=== PATIENT | male | born 1960 | race Caucasian/White ===

== ENCOUNTER 2018-04-29 09:58 | Emergency (ER) | payer OTHER ==
[2018-04-29 10:03] VITALS: TEMP 97.9
--- NOTE | 2018-04-29 10:15 | ED ---
Abdominal Pain HPI - General Chief Complaint: Abdominal Pain Stated Complaint: Constipation Time Seen by Provider: 04/29/18 10:09 Source: patient, RN notes reviewed Mode of arrival: ambulatory Limitations: no limitations - History of Present Illness Initial Comments: This is a 57-year-old male who presents to the emergency department with chief complaint of constipation. Patient states that he has not had a bowel movement for the past 5-6 days. He states that he has been passing gas. Patient states that he has tried stool softeners, suppositories and enemas. He states that last night he was able to move a small portion of his bowels but the stool was hard and he has been having difficulty getting it past the rectum. He denies any abdominal pain but does state that he feels bloated. Denies fevers or chills, chest pain or shortness of breath, nausea or vomiting. Denies any recent surgeries. - Related Data Home Medications Medication Instructions Recorded Confirmed No Known Home Medications 04/29/18 04/29/18 Allergies Allergy/AdvReac Type Severity Reaction Status Date / Time No Known Allergies Allergy Verified 04/29/18 10:32 Review of Systems ROS Statement: Those systems with pertinent positive or pertinent negative responses have been documented in the HPI. ROS Other: All systems not noted in ROS Statement are negative. Past Medical History Past Medical History: Hypertension History of Any Multi-Drug Resistant Organisms: None Reported Past Surgical History: Orthopedic Surgery Additional Past Surgical History / Comment(s): 3 knee surgerys Past Psychological History: No Psychological Hx Reported Smoking Status: Current every day smoker Past Alcohol Use History: Occasional Past Drug Use History: None Reported General Exam - General Exam Comments Initial Comments: General: Awake and alert, well-developed; in no apparent distress. HEENT: Head atraumatic, normocephalic. Pupils are equal, round and reactive to light. Extraocular movements intact. Oropharynx moist without erythema or exudate. Neck: Supple. Normal ROM. Cardiovascular: Regular rate and rhythm. No murmurs, rubs or gallops. Chest symmetrical. Respiratory: Lungs clear to auscultation bilaterally. No wheezes, rales or rhonchi. Normal respiratory effort with no use of accessory muscles. Abdomen: Soft, non-tender, distended. No rigidity, rebound or guarding. Normal bowel sounds in all 4 quadrants. Musculoskeletal: Normal ROM, no tenderness bilateral upper and lower extremities. Ambulating normally. Skin: [place], warm and dry without rashes or lesions. Neurological: Alert and oriented x3. CN II-XII grossly intact. Speech is fluent and answers are appropriate. No focal neuro deficits. Psychiatric: Normal mood and affect. No overt signs of depression or anxiety noted. Limitations: no limitations Course Vital Signs 04/29/18 10:00 Temperature 97.9 F Pulse Rate 106 H Respiratory 16 Rate Blood Pressure 147/78 O2 Sat by Pulse 94 L Oximetry Medical Decision Making - Medical Decision Making This is a 57-year-old male who presents to the emergency department with chief complaint of constipation. Patient reports not having a bowel movement for the past 5-6 days. Abdomen is soft and non-tender. Patient has no other complaints. X-ray KUB revealed no significant stool burden. Discussed options with patient including enema or magnesium citrate. Patient states that he would rather go home and drink magnesium citrate. Case discussed with attending physician, Dr. Bush. Patient's vital signs are stable and he is in no acute distress. He'll be discharged home at this time. He is in agreement and voices understanding. All questions answered. - Radiology Data Radiology results: report reviewed, image reviewed X-ray KUB impression: 1. Small air-fluid levels in the right hemicolon could represent a regional ileus or liquid stool relating to an enteritis. 2. No evidence for free air or bowel obstruction. 3. No significant stool burden. Disposition Clinical Impression: Constipation Disposition: HOME SELF-CARE Condition: Good Instructions: Magnesium Citrate (By mouth), Constipation (ED) Additional Instructions: Please follow up with primary care provider within 1-2 days. Return to emergency department if symptoms should worsen or any concerns arise. Is patient prescribed a controlled substance at d/c from ED?: No Referrals: None,Stated [Primary Care Provider] - 1-2 days Time of Disposition: 11:33
[2018-04-29] MEDS ORDERED: MAGNESIUM CITRATE 296 ML BOTTLE PO ONE (11:31)
--- NOTE | 2018-04-29 11:40 | XR ---
EXAMINATION TYPE: XR KUB DATE OF EXAM: 04/29/2018 CLINICAL DATA: 57-year-old male constipation, rule out impaction, PHH COMPARISON: None FINDINGS: Lung bases are clear. No evidence for free intraperitoneal air. No dilated small bowel or differential air-fluid levels. Scattered air is present within the colon. N o significant stool burden. Small air-fluid levels are present in the right hemicolon. Within the left side of the pelvis. IMPRESSION: 1. Small air-fluid levels in the right hemicolon could represent a regional ileus or liquid stool rel ating to an enteritis. 2. No evidence for free air or bowel obstruction. 3. No significant stool burden.
[2018-04-29 11:46] VITALS: BP 148/96; PULSE 96; RESP 18
== END 2018-04-29 11:46 | disposition home or self-care (01) ==
LOC: EC 09:58
DX: K59.00 Constipation, unspecified (principal); F17.200 Nicotine dependence, unspecified, uncomplicated; Z98.890 Other specified postprocedural states
CPT/HCPCS: 74018; 99284

== ENCOUNTER 2019-07-05 15:40 | Inpatient (IN) | payer OTHER ==
[2019-07-05 16:16] LABS: Basophils # (A) 0.1 k/uL (0-0.2); Basophils % (A) 1 %; Eosinophils # (A) 0.1 k/uL (0-0.7); Eosinophils % (A) 1 %; HCT 46.7 % (39.0-53.0); HGB 15.5 gm/dL (13.0-17.5); Lymphocytes # (A) 1.7 k/uL (1.0-4.8); Lymphocytes % (A) 18 %; MCH 34.4 pg (25.0-35.0); MCHC 33.2 g/dL (31.0-37.0); MCV 103.8 fL (80.0-100.0); Macrocytosis Slight; Mean Platelet Volume 7.1; Monocytes # (A) 0.5 k/uL (0-1.0); Monocytes % (A) 5 %; Neutrophils # (A) 7.1 k/uL (1.3-7.7); Neutrophils % (A) 74 %; Platelet Count 149 k/uL (150-450); RDW 13.4 % (11.5-15.5); WBC 9.6 k/uL (3.8-10.6)
--- NOTE | 2019-07-05 16:25 | XR ---
EXAMINATION TYPE: XR chest 2V DATE OF EXAM: 07/05/2019 COMPARISON: EXAMINATION TYPE: XR chest 2V DATE OF EXAM: 07/05/2019 COMPARISON: NONE HISTORY: Short of breath TECHNIQUE: 2 views FINDINGS: Heart is enlarged. There is blunting right costophrenic angle. There is some pulmonary vasc ular congestion. There are chest leads. There is spurring in the thoracic spine. IMPRESSION: Mild congestive heart failure. Right pleural effusion. HISTORY: TECHNIQUE: Frontal and lateral views of the chest are obtained. FINDINGS: There is no focal air space opacity, pleural effusion, or pneumothorax seen. The cardiac silhouette size is within normal limits. The osseous structures are intact. IMPRESSION: No acute cardiopulmonary process.
[2019-07-05 16:27] LABS: ALT 39 U/L (21-72); AST 58 U/L (17-59); African American GFR (CKD) >90 (>60 ml/min/1.73 sqM); Albumin 4.1 g/dL (3.5-5.0); Alkaline Phosphatase 259 U/L (38-126); Anion Gap 10 mmol/L; Blood Urea Nitrogen 14 mg/dL (9-20); Calcium 8.9 mg/dL (8.4-10.2); Carbon Dioxide 26 mmol/L (22-30); Chloride 104 mmol/L (98-107); Glucose 132 mg/dL (74-99); Sodium 140 mmol/L (137-145); Total Bilirubin 3.3 mg/dL (0.2-1.3)
[2019-07-05 16:33] LABS: Partial Thromboplastin Time 26.9 sec (22.0-30.0)
--- NOTE | 2019-07-05 16:33 | ED ---
General Adult HPI - General Chief complaint: Shortness of Breath Stated complaint: DAVID Time Seen by Provider: 07/05/19 15:56 Source: patient Mode of arrival: ambulatory Limitations: no limitations - History of Present Illness Initial comments: Patient presents the ED complaining of having shallow respirations, dyspnea, and bilateral lower extremity edema for the past 2 days. Patient states that his dyspnea is worse when standing and with exertion. Patient denies having any pain, fever or chills, headache, focal neuro deficit, chest pain, neck/arm/jaw pain, cough or cold symptoms, palpitations, dizziness, nausea/vomiting/diaphoresis, abdominal pain, decreased urine output or urinary symptoms, leg or calf pain, or any other symptoms or complaints. Patient states that he quit smoking about 3 months ago. - Related Data Home Medications Medication Instructions Recorded Confirmed Aspirin EC [Ecotrin Low Dose] 81 mg PO DAILY 07/05/19 07/05/19 Ibuprofen [Motrin Ib] 400 mg PO Q6H PRN 07/05/19 07/05/19 Allergies Allergy/AdvReac Type Severity Reaction Status Date / Time No Known Allergies Allergy Verified 07/05/19 16:51 Review of Systems ROS Statement: Those systems with pertinent positive or pertinent negative responses have been documented in the HPI. ROS Other: All systems not noted in ROS Statement are negative. Past Medical History Past Medical History: Hypertension History of Any Multi-Drug Resistant Organisms: None Reported Past Surgical History: Orthopedic Surgery Additional Past Surgical History / Comment(s): 3 knee surgerys Past Psychological History: No Psychological Hx Reported Smoking Status: Current every day smoker Past Alcohol Use History: Occasional Past Drug Use History: None Reported General Exam Limitations: no limitations General appearance: alert, in no apparent distress Head exam: Present: atraumatic, normocephalic Eye exam: Present: normal appearance, EOMI ENT exam: Present: mucous membranes moist Neck exam: Present: other (Trachea is in midline) Respiratory exam: Present: normal lung sounds bilaterally. Absent: respiratory distress, wheezes, rales, rhonchi Cardiovascular Exam: Present: normal rhythm, tachycardia, normal heart sounds, other (Normal radial pulses bilaterally) GI/Abdominal exam: Present: soft. Absent: distended, tenderness Extremities exam: Present: pedal edema. Absent: tenderness, calf tenderness Neurological exam: Present: alert, oriented X3. Absent: motor sensory deficit Psychiatric exam: Present: normal affect, normal mood Skin exam: Present: warm, dry Course Vital Signs 07/05/19 07/05/19 07/05/19 15:46 16:00 16:30 Temperature 98.0 F Pulse Rate 138 H 131 H 130 H Respiratory 18 25 H 10 L Rate Blood Pressure 160/112 147/116 152/113 O2 Sat by Pulse 97 100 99 Oximetry 07/05/19 07/05/19 07/05/19 17:00 17:30 17:51 Temperature Pulse Rate 131 H 128 H 133 H Respiratory 19 22 20 Rate Blood Pressure 142/104 138/90 146/122 O2 Sat by Pulse 98 98 96 Oximetry 07/05/19 07/05/19 07/05/19 17:55 18:00 18:29 Temperature Pulse Rate 129 H 129 H 130 H Respiratory 20 22 18 Rate Blood Pressure 139/109 139/109 139/106 O2 Sat by Pulse 96 94 L 95 Oximetry 07/05/19 18:37 Temperature Pulse Rate 129 H Respiratory 18 Rate Blood Pressure 123/100 O2 Sat by Pulse 94 L Oximetry - Reevaluation(s) Reevaluation #1: 07/05/19 18:42 Case, H&P, test results and ED management were discussed with Dr. Santos. He accepts hospital floor admission. He has no further recommendations at this time. 07/05/19 19:04 Patient remains alert and breathing comfortably with a normal room air oxygen saturation, and he denies development of any new symptoms while in the ED. Patient's heart rate remains in the 130s on the cable coverer. I suspect that the patient's rhythm is likely sinus versus atrial tachycardia. Patient is aware of his test results, and he agrees with hospital admission at this time. EKG Findings - EKG Comments: EKG Findings:: EKG is limited secondary to motion; suspected rhythm is sinus vs. atrial tachycardia, ventricular rate of 133 bpm, normal [place] and QRS intervals, normal QT interval, no definite ST or T-wave abnormality Medical Decision Making - Medical Decision Making I suspect that the patient's symptoms are likely secondary to CHF given his elevated BNP and lower extremity edema. Patient's CTA chest w/ IV contrast shows a right pleural effusion and mild right basilar infiltrate. I do not suspect pneumonia, as the patient is afebrile, without leukocytosis and denies having a cough. Patient was given IV metoprolol and IV diltiazem in the ED in attempt to slow his heart rate out of concern for the possibility that it may be secondary to atrial tachycardia. Patient was also given a dose of IV Lasix in the ED. Patient's CTA chest with IV contrast is negative for PE. Patient's troponin is negative. Will admit the patient to the hospital for further evaluation and management under care of Dr. Santos. - Lab Data Result diagrams: 07/05/19 16:00 07/05/19 16:00 Lab Results 07/05/19 07/05/19 07/05/19 Range/Units 16:00 16:00 16:00 WBC 9.6 (3.8-10.6) k/uL RBC 4.50 (4.30-5.90) m/uL Hgb 15.5 (13.0-17.5) gm/dL Hct 46.7 (39.0-53.0) % MCV 103.8 H (80.0-100.0) fL MCH 34.4 (25.0-35.0) pg MCHC 33.2 (31.0-37.0) g/dL RDW 13.4 (11.5-15.5) % Plt Count 149 L (150-450) k/uL Neutrophils % 74 % Lymphocytes % 18 % Monocytes % 5 % Eosinophils % 1 % Basophils % 1 % Neutrophils # 7.1 (1.3-7.7) k/uL Lymphocytes # 1.7 (1.0-4.8) k/uL Monocytes # 0.5 (0-1.0) k/uL Eosinophils # 0.1 (0-0.7) k/uL Basophils # 0.1 (0-0.2) k/uL Macrocytosis Slight PT 11.0 (9.0-12.0) sec INR 1.0 (<1.2) APTT 26.9 (22.0-30.0) sec D-Dimer 2.17 H (<0.60) mg/L FEU Sodium 140 (137-145) mmol/L Potassium 4.0 (3.5-5.1) mmol/L Chloride 104 (98-107) mmol/L Carbon Dioxide 26 (22-30) mmol/L Anion Gap 10 mmol/L BUN 14 (9-20) mg/dL Creatinine 0.93 (0.66-1.25) mg/dL Est GFR (CKD-EPI)AfAm >90 (>60 ml/min/1.73 sqM) Est GFR (CKD-EPI)NonAf >90 (>60 ml/min/1.73 sqM) Glucose 132 H (74-99) mg/dL Calcium 8.9 (8.4-10.2) mg/dL Total Bilirubin 3.3 H (0.2-1.3) mg/dL AST 58 (17-59) U/L ALT 39 (21-72) U/L Alkaline Phosphatase 259 H (38-126) U/L Troponin I (0.000-0.034) ng/mL NT-Pro-B Natriuret Pep pg/mL Total Protein 8.0 (6.3-8.2) g/dL Albumin 4.1 (3.5-5.0) g/dL 07/05/19 07/05/19 Range/Units 16:00 16:00 WBC (3.8-10.6) k/uL RBC (4.30-5.90) m/uL Hgb (13.0-17.5) gm/dL Hct (39.0-53.0) % MCV (80.0-100.0) fL MCH (25.0-35.0) pg MCHC (31.0-37.0) g/dL RDW (11.5-15.5) % Plt Count (150-450) k/uL Neutrophils % % Lymphocytes % % Monocytes % % Eosinophils % % Basophils % % Neutrophils # (1.3-7.7) k/uL Lymphocytes # (1.0-4.8) k/uL Monocytes # (0-1.0) k/uL Eosinophils # (0-0.7) k/uL Basophils # (0-0.2) k/uL Macrocytosis PT (9.0-12.0) sec INR (<1.2) APTT (22.0-30.0) sec D-Dimer (<0.60) mg/L FEU Sodium (137-145) mmol/L Potassium (3.5-5.1) mmol/L Chloride (98-107) mmol/L Carbon Dioxide (22-30) mmol/L Anion Gap mmol/L BUN (9-20) mg/dL Creatinine (0.66-1.25) mg/dL Est GFR (CKD-EPI)AfAm (>60 ml/min/1.73 sqM) Est GFR (CKD-EPI)NonAf (>60 ml/min/1.73 sqM) Glucose (74-99) mg/dL Calcium (8.4-10.2) mg/dL Total Bilirubin (0.2-1.3) mg/dL AST (17-59) U/L ALT (21-72) U/L Alkaline Phosphatase (38-126) U/L Troponin I <0.012 (0.000-0.034) ng/mL NT-Pro-B Natriuret Pep 3550 pg/mL Total Protein (6.3-8.2) g/dL Albumin (3.5-5.0) g/dL - Radiology Data Radiology results: report reviewed (CT angiogram chest with IV contrast is negative for PE, but does show a right pleural effusion and mild right basilar infiltrate and atelectasis), image reviewed (Patient's chest x-ray is negative) Disposition Clinical Impression: Dyspnea, Congestive heart failure, Tachycardia Disposition: ADMITTED IP TO THIS [facility] Condition: Stable Is patient prescribed a controlled substance at d/c from ED?: No Time of Disposition: 18:42 Decision Date: 07/05/19 Decision Time: 17:42
[2019-07-05 16:43] LABS: D-Dimer 2.17 mg/L FEU (<0.60)
--- NOTE | 2019-07-05 17:34 | CT ---
EXAMINATION TYPE: CT chest angio for PE DATE OF EXAM: 07/05/2019 COMPARISON: None HISTORY: Dyspnea, Elevated d-dimer CT DLP: 722.9 mGycm Automated exposure control for dose reduction was used. CONTRAST: CT Chest for pulmonary embolism performed with with IV Contrast, patient injected with 100 mL of Isov ue 370. There are 3-D post processed images. FINDINGS: There is small right pleural effusion. There is moderate abdominal ascites fluid. Heart is enlarged. There is no pericardial effusion. There is some infiltrate and atelectasis right lower lobe. I see no pulmonary mass. There are no hilar masses. There is no mediastinal adenopathy. There are no hilar masses. Thoracic aorta shows no aneurysm or di ssection. There is normal contrast opacification of the pulmonary arteries. I see no filling defect. There is some degenerative spurring in the thoracic spine. There is a large hypertrophic anterior ost eophyte in the mid thoracic spine. IMPRESSION: No evidence of pulmonary embolism. Right pleural effusion and right basilar mild pulmonary infiltrate and atelectasis. Abdominal ascites.
[2019-07-05] MEDS ORDERED: METOPROLOL TARTRATE 5 MG/5 ML VIAL IVP STA (17:39)
[2019-07-05] MEDS ORDERED: FUROSEMIDE 10 MG/ML 4 ML VIAL IV STA (17:41)
[2019-07-05] MEDS ORDERED: DILTIAZEM 5 MG/ML 5 ML VIAL IVP STA ×2 (18:31→20:28)
[2019-07-05] MEDS ORDERED: ENOXAPARIN 100 MG/ML SYRINGE SQ STA (20:29)
[2019-07-05] MEDS ORDERED: DILTIAZEM 125 MG in SODIUM CHLORIDE 0.9% 100 ML IV SCH ×4 (20:30)
[2019-07-05] MEDS: SODIUM CHLORIDE 0.9% 1,000 ML IV SCH (22:00)
[2019-07-05] MEDS ORDERED: DEXTROSE 5% IN WATER 100 ML with AMIODARONE 150 MG IV ONE (23:00)
[2019-07-05] MEDS ORDERED: AMIODARONE 360 MG in DEXTROSE 5% IN WATER 200 ML IV ONE ×2 (23:00)
[2019-07-06] MEDS ORDERED: AMIODARONE 300 MG in DEXTROSE 5% IN WATER 250 ML IV SCH ×2 (05:00)
[2019-07-06 05:10] LABS: Basophils # (A) 0.1 k/uL (0-0.2); Basophils % (A) 1 %; Eosinophils % (A) 1 %; HCT 42.5 % (39.0-53.0); HGB 13.7 gm/dL (13.0-17.5); Lymphocytes # (A) 1.5 k/uL (1.0-4.8); Lymphocytes % (A) 20 %; MCH 33.9 pg (25.0-35.0); MCHC 32.2 g/dL (31.0-37.0); MCV 105.2 fL (80.0-100.0); Macrocytosis Moderate; Mean Platelet Volume 7.2; Monocytes # (A) 0.4 k/uL (0-1.0); Monocytes % (A) 6 %; Neutrophils # (A) 5.4 k/uL (1.3-7.7); Neutrophils % (A) 72 %; Platelet Count 120 k/uL (150-450); RBC 4.04 m/uL (4.30-5.90); RDW 13.6 % (11.5-15.5); WBC 7.6 k/uL (3.8-10.6)
[2019-07-06] MEDS ORDERED: DILTIAZEM 5 MG/ML 5 ML VIAL IVP STA (05:11)
[2019-07-06] MEDS: DILTIAZEM 125 MG in SODIUM CHLORIDE 0.9% 100 ML IV SCH ×2 (05:28→18:01)
[2019-07-06 05:42] LABS: ALT 36 U/L (21-72); AST 46 U/L (17-59); African American GFR (CKD) >90 (>60 ml/min/1.73 sqM); Albumin 3.6 g/dL (3.5-5.0); Alkaline Phosphatase 215 U/L (38-126); Anion Gap 7 mmol/L; Blood Urea Nitrogen 14 mg/dL (9-20); Calcium 8.8 mg/dL (8.4-10.2); Carbon Dioxide 32 mmol/L (22-30); Chloride 100 mmol/L (98-107); Glucose 108 mg/dL (74-99); Potassium 3.7 mmol/L (3.5-5.1); Sodium 139 mmol/L (137-145); Total Bilirubin 3.5 mg/dL (0.2-1.3); Total Protein 6.8 g/dL (6.3-8.2)
[2019-07-06] MEDS: METOPROLOL SUCCINATE (ER) 50 MG TAB.ER.24H PO SCH (10:03)
[2019-07-06] MEDS: FUROSEMIDE 10 MG/ML 10 ML VIAL IV SCH ×2 (10:04→20:10)
--- NOTE | 2019-07-06 10:36 | XR ---
EXAMINATION TYPE: XR chest 2V DATE OF EXAM: 07/06/2019 COMPARISON: 06/04/2019 TECHNIQUE: PA and lateral views submitted. HISTORY: Shortness of breath FINDINGS: Right lower lobe consolidation and pleural effusion. Cardiomegaly and prominent interstitium. Hyperin flation suggests COPD. Hypertrophic and degenerative change of the spine. IMPRESSION: 1. Right lower lobe infiltrate and small effusion. 2. Correlate for CHF or interstitial pneumonitis.
--- NOTE | 2019-07-06 12:09 | CONS ---
CONSULTATION CHIEF COMPLAINT: Leg edema and palpitations. HISTORY OF PRESENT ILLNESS: This is a 58-year-old gentleman with history of alcohol abuse that stopped drinking roughly 6 months ago, comes into hospital complaining of sustained palpitations. He also had shortness of breath and leg edema. He did not have any chest pain. On his presentation, the BNP was elevated. Troponins were within normal limits. EKG showed atrial flutter with variable heart rate. The D-dimer was elevated at 2.17. He had a CT scan of the chest that was negative for pulmonary embolism. There were bilateral pleural effusions. At the time of my evaluation, patient still remains tachycardic. He is on intravenous Cardizem and amiodarone and had received Lovenox 1 dose. There is no prior history of coronary artery disease, congestive heart failure, cardiac arrhythmia. There is history of heavy alcohol use that he quit 6 months ago. While the liver enzymes seem okay, his total bilirubin is elevated. The patient's clinical presentation is consistent with atrial flutter and new onset congestive heart failure. It is possible that the patient has dilated cardiomyopathy related to alcoholism or tachyarrhythmia. I am going to continue the Cardizem and amiodarone. I am going to add a beta aixa. I will obtain a 2D echo and start him on Xarelto if he is covered. PAST MEDICAL HISTORY: Negative for hypertension, diabetes, dyslipidemia, coronary artery disease or congestive heart failure. MEDICATIONS: None. ALLERGIES: FAMILY HISTORY: Significant for coronary artery disease. SOCIAL HISTORY: Significant for ETOH abuse that he quit 6 months ago. Denies current smoking. REVIEW OF SYSTEMS: HEENT is unremarkable. Cardiac as described above. Respiratory as described above. GI negative. ALLERGY none. Derm: Negative. Skin negative. Musculoskeletal for arthritis. Psychosocial negative. Endocrine negative. Constitutional negative. Oncological negative. DR[employer] INSTRU[employer] negative. Rest of the system review is not relevant. EXAM: Patient is comfortable at rest. Afebrile. Heart rate is 127 beats per minute. Blood pressure is 135/93, respiratory rate is 18. There is no jugular venous distention. Carotid upstroke is normal. There is no bruit. Chest exam reveals good air entry bilaterally. Heart exam reveals first and second heart sounds, irregular rhythm and a systolic murmur at the left lower sternal border. Abdomen is soft. Exam of extremities reveals bilateral moderate pitting edema. LAB: Show a hemoglobin of 13.7, platelet count is low at 120. Potassium is 3.7, creatinine is 1. AST, ALT are within normal limits. Tropes are negative. Total bilirubin is elevated at 3.5. BNP is elevated at 3550. ASSESSMENT: 1. Acute onset congestive heart failure probably systolic. 2. Atypical atrial flutter with poorly controlled ventricular rate. 3. History of alcoholism. 4. Elevated total bilirubin. PLAN: I am going to obtain a 2D echo. Continue amiodarone and Cardizem for now. I will obtain a consultation for elevated bilirubin. I am going to hold the amiodarone at this time given the elevated bilirubin. Will control the heart rate, start him on an anticoagulant. CODY / JI: [id number] /
[2019-07-06] MEDS: SODIUM CHLORIDE 0.9% 1,000 ML IV SCH (17:37)
[2019-07-06] MEDS: RIVAROXABAN 20 MG TAB PO SCH (17:38)
--- NOTE | 2019-07-06 19:39 | PN ---
PROGRESS NOTE DATE OF SERVICE: 07/06/2019 CHIEF COMPLAINT: Atrial fibrillation and congestive heart failure. HISTORY OF PRESENT ILLNESS: This gentleman is feeling much better. He is much less short of breath. He is diuresing fairly rapidly. PHYSICAL EXAMINATION: He still has scattered rales and rhonchi throughout and they are quite extensive. Cardiac exam demonstrates a slower rate at around 100. IMPRESSION: 1. Congestive heart failure. 2. Atrial fibrillation. 3. Alcoholism. 4. Probable alcoholic cardiomyopathy. PLAN: Continue with the diuresis and working up his cardiac and liver issues. MMODL / IJN: [id number] /
[2019-07-06] MEDS: IOPAMIDOL CONTRAST (ORAL USE) VIAL PO PRN ×2 (20:09→21:03)
[2019-07-06] MEDS: SPIRONOLACTONE-HCTZ 25-25MG 1 EACH TAB PO SCH (20:12)
--- NOTE | 2019-07-06 20:26 | HP ---
HISTORY AND PHYSICAL CHIEF COMPLAINT: Shortness of breath. 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 He started to notice fairly rapid onset of shortness of breath and swelling of the legs. He came to emergency room where he was found to be in congestive heart failure. He also had atrial fibrillation or atrial flutter on the EKG. He has never known to have any heart disease, palpitations, shortness of breath, etc. He had a CTA in the emergency room as well which ruled out pulmonary embolism. He has never had rheumatic fever, murmur, angina, etc. He does not go to any doctors. He used to drink very heavily and smokes as well, but he states that he stopped drinking alcohol about 6 months ago and stopped smoking 3 months ago. LABORATORY STUDIES: Included a chest x-ray which suggested congestive heart failure. Laboratory studies were consistent with a history of alcoholism with a high MCV and a platelet count of a 120,000. His D-dimer was elevated at 2.17. Blood sugar was normal. His bilirubin was high at 3.5. His AST and ALT were normal, but his alkaline phosphatase was also elevated. BNP was 3550. PHYSICAL EXAMINATION: Blood pressure is 118/91 with a pulse of 102 and irregularly irregular. Respirations were 16. He is afebrile. In general, he appeared to be overweight and in no acute distress. He did have venous congestion of the face. Head, ears, eyes, nose, mouth, and throat were otherwise normal. Chest demonstrated it has extensive scattered rales and rhonchi. Cardiac exam demonstrated a rapid and irregular rhythm. The abdomen is protuberant and soft. There are no definite masses or visceromegaly. He had about 2 or 3+ edema. Neurologically he is intact. He is admitted to the hospital with the diagnoses: 1. Acute congestive heart failure. 2. Atrial fibrillation, probably chronic. 3. Probable alcoholic cardiomyopathy. 4. Elevated liver enzymes. 5. History of nicotine abuse. 6. Alcoholism. PLAN: 1. Bed rest. 2. IV fluids. 3. Diuresis. 4. Cardiology consult. 5. Workup abnormal liver studies. MMODL / IJN: [id number] /
--- NOTE | 2019-07-06 22:11 | CT ---
EXAMINATION TYPE: CT abdomen pelvis wo/w con DATE OF EXAM: 07/06/2019 COMPARISON: None. HISTORY: Elevated LFTs. CT DLP: 4354.4 mGycm, Automated Exposure Control for Dose Reduction was Utilized. CONTRAST: CT scan of the abdomen and pelvis is performed with oral and without and with IV Contrast, patient in jected with 100 mL of Isovue 300. FINDINGS: LUNG BASES: Posterior right basilar linear scarring and/or atelectasis. LIVER/GB: Liver is diffusely low dense on noncontrast CT relative to spleen consistent with mild diff use fatty infiltration. Surrounding ascites is present. Liver size but within normal limits. Gallblad judd poorly distended. No suspicious biliary dilatation. PANCREAS: No significant abnormality is seen. SPLEEN: Spleen normal in size with surrounding ascites. ADRENALS: Low dense bilateral adrenal masses axial image 22 favoring benign lipid rich adenomas sligh tly larger in size on the right.. KIDNEYS: No significant abnormality is seen. BOWEL: Oral contrast reaches level of rectum. No suspicious small or large bowel dilatation. A few sc attered pelvic phleboliths. PROSTATE/SEMINAL VESICLES: No gross abnormality seen. LYMPH NODES: No greater than 1cm abdominal or pelvic lymph nodes are appreciated. Some prominent leodan ateral groin lymph nodes are present. For reference left groin lymph node measures 2.1 x 1.6 cm axial image 94 and right groin lymph node measures 1.9 x 1.6 cm axial image 96. OSSEOUS STRUCTURES: Slight grade 1 anterolisthesis L4 and L5. Multilevel spurring thoracolumbar spine . OTHER: Small amount of abdominal and pelvic ascites. Moderate amount of diffuse subcutaneous edema an d/or soft tissue anasarca. IMPRESSION: 1. Small amount of abdominal and pelvic ascites of uncertain etiology. Mild diffuse fatty infiltratio n of liver. Moderate amount of soft tissue anasarca noted. 2. Bilateral groin adenopathy of uncertain etiology. Follow-up advised.
--- NOTE | 2019-07-06 23:38 | P.CONS ---
History of Present Illness - Reason for Consult Consult date: 07/06/19 Elevated liver enzymes Requesting physician: Abdiel Santos - Chief Complaint Shortness of breath, lower extremity swelling - History of Present Illness This 58-year-old male presenting to the hospital due to complaints of shortness of breath and lower extremity swelling. The patient had reported worsening shortness of breath at rest and worse with exertion as well as lower extremity swelling prior to presentation to the hospital. The patient was found to be in atrial fibrillation and is being treated for suspected congestive heart failure. The patient was also found to have elevation in his liver enzymes with a total bilirubin 3.5, alkaline phosphatase 215, AST 46 and ALTs 36. On questioning the patient denies any prior history of elevated liver enzymes. No new medications, prior history of blood transfusions, family history of liver problems or history of viral hepatitis. Patient does have a significant history for alcohol abuse reporting that he drank 6-12 beers daily for at least 10 years, but stopped drinking for the past 4 months. He denies any jaundice, darkening of his urine or episodes of confusion. No episodes of GI bleeding. Review of Systems REVIEW OF SYSTEMS: CONSTITUTIONAL: Denies any fevers, chills, or fatigue but does report some recent weight gain CARDIOVASCULAR: Denies any chest pain, palpitations high or low blood pressures RESPIRATORY: Denies any hemoptysis or cough but does report significantly shortness of breath. GENITOURINARY: No dysuria or hematuria. MUSCULOSKELETAL: No weakness reported. SKIN: Denies any new rashes or lesions, jaundice or pallor. PSYCHIATRIC: Denies any depression or anxiety. NEUROLOGY: Denies headache, denies any new focal deficits. EARS/NOSE/THROAT: No recent hearing change, congestion, nasal discharge or sore throat. EYES: No pain in eyes, discharge or change in vision. GASTROINTESTINAL: As per HPI. Past Medical History Past Medical History: No Reported History History of Any Multi-Drug Resistant Organisms: None Reported Past Surgical History: Orthopedic Surgery Additional Past Surgical History / Comment(s): 3 knee surgerys Past Anesthesia/Blood Transfusion Reactions: No Reported Reaction Past Psychological History: No Psychological Hx Reported Smoking Status: Former smoker Past Alcohol Use History: Occasional Past Drug Use History: None Reported - Past Family History Father Family Medical History: Congestive Heart Failure (CHF), Myocardial Infarction (NH) Medications and Allergies Home Medications Medication Instructions Recorded Confirmed Type Aspirin EC [Ecotrin Low Dose] 81 mg PO DAILY 07/05/19 07/05/19 History Ibuprofen [Motrin Ib] 400 mg PO Q6H PRN 07/05/19 07/05/19 History Allergies Allergy/AdvReac Type Severity Reaction Status Date / Time No Known Allergies Allergy Verified 07/05/19 16:51 Physical Exam Vitals: Vital Signs Temp Pulse Pulse Resp BP Pulse Ox 07/06/19 20:00 98.6 F 91 18 117/79 96 07/06/19 16:49 98.3 F 104 H 92 16 115/82 96 07/06/19 12:00 97.9 F 122 H 95 16 118/91 96 07/06/19 08:25 98.1 F 127 H 17 139/111 91 L 07/06/19 07:00 135/93 07/06/19 06:00 158/94 07/06/19 05:00 151/95 07/06/19 04:00 127 H 15 07/06/19 03:32 97.9 F 127 H 15 136/97 94 L 07/06/19 02:15 129/88 07/06/19 01:00 130/90 07/05/19 23:45 97.6 F 129 H 18 146/99 98 07/05/19 23:15 141/103 Intake and Output 07/06/19 07/06/19 07/07/19 14:59 22:59 06:59 Intake Total 680 765 Output Total 400 2400 1000 Balance 280 -1635 -1000 Intake: Intake, IV Titration 80 525 Amount Diltiazem 125 mg In 80 125 Sodium Chloride 0.9% 100 ml @ 10 MG/HR 10 mls/hr IV .[id number] [facility] Rx#: [id number] Sodium Chloride 0.9% 1, 400 000 ml @ 50 mls/hr IV . Q20H [facility] Rx#:[id number] Oral 600 240 Output: Urine 400 2400 1000 On physical examination, patient appears comfortable in no apparent distress. HEAD: Normocephalic, atraumatic. EYES: No scleral icterus. No conjunctival injection. MOUTH: No lesions, tongue midline. NECK: Trachea midline, no gross abnormalities. CHEST: Clear to auscultation with no wheezing or rhonchi appreciated. HEART: S1-S2, irregularly irregular ABDOMEN: Soft, obese. Bowel sounds are positive. No organomegaly. No guarding or rigidity. EXTREMITIES: No pedal edema. SKIN: No rashes, no jaundice. NEUROLOGIC: Alert and oriented x3. No focal deficits. Results CBC & Chem 7: 07/06/19 04:45 07/06/19 04:45 Labs: Abnormal Lab Results - Last 24 Hours (Table) 07/06/19 07/06/19 Range/Units 04:45 04:45 RBC 4.04 L (4.30-5.90) m/uL MCV 105.2 H (80.0-100.0) fL Plt Count 120 L (150-450) k/uL Carbon Dioxide 32 H (22-30) mmol/L Glucose 108 H (74-99) mg/dL Total Bilirubin 3.5 H (0.2-1.3) mg/dL Alkaline Phosphatase 215 H (38-126) U/L CT scan - abdomen: report reviewed (CT abdomen findings of small amount of ascites and fatty infiltration of the liver) Assessment and Plan (1) Elevated liver enzymes Narrative/Plan: 58-year-old male presenting to the hospital with complaints of shortness of breath and extremity swelling currently being treated for suspected congestive heart failure and atrial fibrillation. Patient was noted to have a predominantly cholestatic pattern of elevated liver enzymes with total bilirubin 3.5, alkaline phosphatase 213, AST 46 and ALTs 36. Denies any prior history of liver disease, intrinsic liver disease, viral hepatitis, blood transfusion, IV drug use, prior GI bleeding or encephalopathy. He does have a significant history of alcohol abuse with 6-12. His daily for 10 years for which she has been abstinent from alcohol over the past 4 months. Likely etiology of patient's elevated liver enzymes is from underlying fibrosis from alcoholic liver disease with plans for ultrasound of the abdomen and acute viral hepatitis panel to rule out other etiology. Current Visit: Yes Status: Acute Code(s): R74.8 - ABNORMAL LEVELS OF OTHER SERUM ENZYMES SNOMED Code(s): 286064952 Plan: Supportive care Okay for diet Continue to monitor CBC, CMP AFP, hepatic function panel, INR, viral hepatitis panel and ultrasound abdomen ordered Alcohol abstinence Thank you for allowing us to participate in the care of this patient we will continue to follow
[2019-07-07] MEDS: DILTIAZEM 125 MG in SODIUM CHLORIDE 0.9% 100 ML IV SCH (02:24)
[2019-07-07 07:01] LABS: Albumin 3.6 g/dL (3.5-5.0); Bilirubin, Delta 1.3 mg/dL (0.0-0.2); Bilirubin,Unconjugated 1.3 mg/dL (0.0-1.1); Calcium 9.1 mg/dL (8.4-10.2); Potassium 3.4 mmol/L (3.5-5.1); Total Bilirubin 2.6 mg/dL (0.2-1.3); Total Protein 6.9 g/dL (6.3-8.2)
[2019-07-07 07:31] LABS: INR 1.2 (<1.2); Prothrombin Time 12.6 sec (9.0-12.0)
--- NOTE | 2019-07-07 08:00 | US ---
EXAMINATION TYPE: US abdomen complete DATE OF EXAM: 07/07/2019 COMPARISON: CT 07/06/19 CLINICAL HISTORY: Elevated liver enzymes. EXAM MEASUREMENTS: Liver Length: 22.4 cm Gallbladder Wall: 0.5 cm CBD: 0.3 cm Spleen: 11.8 cm Right Kidney: 11.6 x 5.7 x4.6 cm Left Kidney: 12.1 x 5.9 x 5.6 cm Pancreas: Tail obscured by overlying bowel gas Liver: enlarged, echogenic Gallbladder: nondistended (Pt NPO > 8 hours), thick wall Evidence for sonographic Rich's sign: No CBD: wnl Spleen: wnl Right Kidney: wnl Left Kidney: Within normal limits, the cortical medullary differentiation is maintained within the k idneys Upper IVC: Measures 3.0 cm in its visualized portion Abd Aorta: Difficult to see entirely due to large amounts of bowel gas. Ascites noted. No evident gallstone. IMPRESSION: Correlate for hepatocellular disease, hepatic steatosis. There is hepatomegaly and ascite s. Exam is limited. Correlate for possible chronic cholecystitis.
[2019-07-07] MEDS: METOPROLOL SUCCINATE (ER) 50 MG TAB.ER.24H PO SCH (08:31)
[2019-07-07] MEDS: SPIRONOLACTONE-HCTZ 25-25MG 1 EACH TAB PO SCH ×2 (08:31→22:52)
[2019-07-07] MEDS: FUROSEMIDE 10 MG/ML 10 ML VIAL IV SCH ×2 (08:31→22:47)
[2019-07-07] MEDS: ASPIRIN 81 MG PO SCH (08:31)
[2019-07-07 09:56] VITALS: BMI 36.1
--- NOTE | 2019-07-07 10:26 | ECHOF ---
Referral Reason:lv function MEASUREMENTS -------- HEIGHT: 188.0 cm WEIGHT: 132.4 kg BP: 139/111 RVIDd: 4.8 cm (< 3.3) IVSd: 1.1 cm (0.6 - 1.1) LVIDd: 5.2 cm (3.9 - 5.3) LVPWd: 1.1 cm (0.6 - 1.1) IVSs: 1.4 cm LVIDs: 4.6 cm LVPWs: 1.6 cm LAESV Index (A-L): 35.23 ml/m Ao Diam: 3.8 cm (2.0 - 3.7) AV Cusp: 1.6 cm (1.5 - 2.6) MV EXCURSION: 25.622 mm (> 18.000) MV EF SLOPE: 146 mm/s (70 - 150) EPSS: 1.3 cm RAP: 5.00 mmHg RVSP: 31.78 mmHg FINDINGS -------- Atrial fibrillation. This was a technically difficult study with suboptimal apical views. The left ventricle is mildly dilated. There is borderline concentric left ventricular hypertrophy. There is moderate global hypokinesis of LV . Overall left ventricular systolic function is severe ly impaired with, an EF between 20 - 25 %. Left ventricular fillimg pressure cannot be estimated du e to Atrial fibrillation. The right ventricle is severely enlarged. The right ventricular systolic function is moderately imp aired. LA is moderately dilated 34-39 ml/m2 The right atrium is moderately enlarged. 5.0mg of Lumason was utilized for enhancement of images Interatrial and interventricular septum intact. There is no evidence of aortic regurgitation. There is no evidence of aortic stenosis. Jmsi-ks-eeumvgwt mitral regurgitation is present. Tpyw-fs-fbkojvbm tricuspid regurgitation present. There is no evidence of pulmonary hypertension. The right ventricular systolic pressure, as measured by Doppler, is 31.78mmHg. There is no pulmonic regurgitation present. The aortic root size is normal. IVC Not well visulized. There is no pericardial effusion. CONCLUSIONS -------- 1. Atrial fibrillation with RVR. 2. This was a technically difficult study with suboptimal apical views. 3. The left ventricle is mildly dilated. 4. There is borderline concentric left ventricular hypertrophy. 5. There is moderate global hypokinesis of LV . 6. Overall left ventricular systolic function is severely impaired with, an EF between 20 - 25 %. 7. Left ventricular fillimg pressure cannot be estimated due to Atrial fibrillation. 8. The right ventricle is severely enlarged. 9. The right ventricular systolic function is moderately impaired. 10. LA is moderately dilated 34-39 ml/m2 11. The right atrium is moderately enlarged. 12. 5.0mg of Lumason was utilized for enhancement of images 13. Interatrial and interventricular septum intact. 14. There is no evidence of aortic regurgitation. 15. There is no evidence of aortic stenosis. 16. Eliy-rj-mntbsnuj mitral regurgitation is present. 17. Qwej-rj-xcxbycsu tricuspid regurgitation present. 18. There is no evidence of pulmonary hypertension. 19. The right ventricular systolic pressure, as measured by Doppler, is 31.78mmHg. 20. There is no pulmonic regurgitation present. 21. The aortic root size is normal. 22. IVC Not well visulized. 23. There is no pericardial effusion. [employer] RENTAL CLERK: Addie Minor RDCS
[2019-07-07 11:47] LABS: Alpha Fetoprotein, Tumor Mkr 3.6 ng/mL (0.0-7.9)
[2019-07-07 12:09] LABS: Hepatitis A Antibody IgM Non-Reactive (Non-Reactive); Hepatitis B Core IgM Non-Reactive (Non-Reactive); Hepatitis B Surface Antigen Non-Reactive (Non-Reactive); Hepatitis C IgG Antibody Non-Reactive (Non-Reactive)
--- NOTE | 2019-07-07 12:46 | P.PN ---
Subjective Progress Note Date: 07/07/19 This is a 58-year-old gentleman with history of alcohol abuse, stopped drinking approximately 6 months ago, came to the hospital with sustained palpitations and associated shortness of breath. He had also noticed a significant increase in his bilateral lower extremity edema. Patient was seen in consultation by Dr. Celaya yesterday, he was found to be in atrial flutter with a variable heart rate. A computed tomography scan of the chest was negative for pulmonary embolism but it did reveal evidence of bilateral pleural effusions. Patient was seen and examined this morning he sitting up in chair, he states he's been urinating a significant amount through the night last night. He continues to be in atrial flutter this morning and is on a Cardizem drip at 10 mg per hour. He had been on amiodarone yesterday, this was placed on hold because of elevated bilirubin. He was initiated on anticoagulation yesterday in the form of Xarelto. His blood pressure is 124/80, heart rate in the 120s today. Sodium 139, potassium 3.4, BUN 15, creatinine 1.0. Unconjugated bilirubin 1.3, delta bilirubin 1.3. Troponin 0.012, 0.012, 0.014. CAT scan of the abdomen was performed which revealed a small amount of abdominal and pelvic ascites of uncertain etiology. Mild diffuse fatty infiltration of the liver. Moderate amount of soft tissue anasarca. Ultrasound of the abdomen was performed which revealed hepatocellular disease hepatic steatosis, hepatomegaly and ascites. Echocardiogram with Doppler study was performed which revealed a severely impaired left ventricular systolic function, 20-25%. Mild to moderate mitral regurg mild to moderate tricuspid regurg. His weight today is down significantly from admission. He is diuresing very well. Continues to be on IV Lasix 60 mg every 12 hourly. Objective - Vital Signs Vital signs: Vital Signs Temp 97.6 F 07/07/19 12:00 Pulse 124 H 07/07/19 12:00 Resp 18 07/07/19 12:00 BP 124/80 07/07/19 12:00 Pulse Ox 94 L 07/07/19 12:00 Intake & Output 07/06/19 07/07/19 07/07/19 18:59 06:59 18:59 Intake Total 1445 83.833 240 Output Total 1900 3500 Balance -455 -3416.167 240 Weight 127.8 kg 127.8 kg Intake: Intake, IV Titration 605 83.833 Amount Diltiazem 125 mg In 205 83.833 Sodium Chloride 0.9% 100 ml @ 10 MG/HR 10 mls/hr IV .[id number] [facility] Rx#: [id number] Sodium Chloride 0.9% 1, 400 000 ml @ 50 mls/hr IV . Q20H [facility] Rx#:[id number] Oral 840 240 Output: Urine 1900 3500 Other: Voiding Method Toilet # Voids 2 - Exam PHYSICAL EXAMINATION: GENERAL: 58-year-old gentleman in no acute distress at the time of my examination HEENT: Head is atraumatic, normocephalic. Pupils equal, round. Sclera anicteric. Conjunctiva are clear. Mucous membranes of the mouth are moist. Neck is supple. There is elevated jugular venous pressure. No bruit is heard. HEART EXAMINATION: Heart S1 and S2 irregularly irregular a systolic murmur is heard CHEST EXAMINATION: And's reveal scattered coarse wheezing throughout with diminished air entry to the bases bilaterally. ABDOMEN: Soft, obese, nontender. Bowel sounds are heard. No organomegaly noted. EXTREMITIES: 2+ peripheral pulses with 2+ evidence of peripheral edema and no calf tenderness noted. NEUROLOGIC patient is awake, alert and oriented 3 . . - Labs CBC & Chem 7: 07/06/19 04:45 07/07/19 05:37 Labs: Abnormal Lab Results - Last 24 Hours (Table) 07/07/19 07/07/19 Range/Units 05:37 05:41 PT 12.6 H (9.0-12.0) sec INR 1.2 H (<1.2) Potassium 3.4 L (3.5-5.1) mmol/L Carbon Dioxide 32 H (22-30) mmol/L Total Bilirubin 2.6 H (0.2-1.3) mg/dL Unconjugated Bilirubin 1.3 H (0.0-1.1) mg/dL Delta Bilirubin 1.3 H (0.0-0.2) mg/dL Alkaline Phosphatase 233 H (38-126) U/L Assessment and Plan Plan: Assessment and plan #1 systolic congestive heart failure acute on chronic #2 typical atrial flutter #3 history of alcohol abuse Plan Echocardiogram with Doppler study revealed an ejection fraction of 20-25%, for this reason we will discontinue the IV Cardizem drip. We will also check with GI service, if it is cleared by them we will resume the patient's IV amiodarone for more optimal heart rate control. Patient is currently on beta aixa. We will also start an ASHISH inhibitor, continue Aldactone, continue IV Lasix, continue to monitor intake and output along with daily weights and daily lytes BUN and creatinine. Patient has also been receiving IV fluids which we will decrease to KVO. Further recommendations to follow. DNP note has been reviewed, I agree with a documented findings and plan of care. Patient was seen and examined.
[2019-07-07] MEDS: SODIUM CHLORIDE 0.9% 1,000 ML IV SCH (13:49)
[2019-07-07] MEDS ORDERED: AMIODARONE 360 MG in DEXTROSE 5% IN WATER 200 ML IV ONE ×2 (13:57)
[2019-07-07] MEDS ORDERED: DEXTROSE 5% IN WATER 100 ML with AMIODARONE 150 MG IV ONE (13:57)
[2019-07-07] MEDS: RIVAROXABAN 20 MG TAB PO SCH (16:28)
[2019-07-07] MEDS: AMIODARONE 300 MG in DEXTROSE 5% IN WATER 250 ML IV SCH ×2 (21:00)
--- NOTE | 2019-07-07 22:37 | P.PN ---
Subjective Progress Note Date: 07/07/19 Principal diagnosis: Elevated liver enzymes The patient is seen lying in bed denying any abdominal pain. He is tolerating his diet. No bowel movements today. Objective - Vital Signs Vital signs: Vital Signs Temp 97.6 F 07/07/19 12:00 Pulse 124 H 07/07/19 12:00 Resp 18 07/07/19 12:00 BP 124/80 07/07/19 12:00 Pulse Ox 94 L 07/07/19 12:00 Intake & Output 07/06/19 07/07/19 07/07/19 18:59 06:59 18:59 Intake Total 1445 83.833 480 Output Total 1900 3500 Balance -455 -3416.167 480 Weight 127.8 kg 127.8 kg Intake: Intake, IV Titration 605 83.833 Amount Diltiazem 125 mg In 205 83.833 Sodium Chloride 0.9% 100 ml @ 10 MG/HR 10 mls/hr IV .[id number] [facility] Rx#: [id number] Sodium Chloride 0.9% 1, 400 000 ml @ 50 mls/hr IV . Q20H [facility] Rx#:[id number] Oral 840 480 Output: Urine 1900 3500 Other: Voiding Method Toilet # Voids 2 - Exam On physical examination, patient appears comfortable in no apparent distress. HEAD: Normocephalic, atraumatic. EYES: No scleral icterus. No conjunctival injection. MOUTH: No lesions, tongue midline. NECK: Trachea midline, no gross abnormalities. CHEST: Clear to auscultation with no wheezing or rhonchi appreciated. ABDOMEN: Soft, obese. Bowel sounds are positive. No organomegaly. No guarding or rigidity. EXTREMITIES: No pedal edema. SKIN: No rashes, no jaundice. NEUROLOGIC: Alert and oriented x3. No focal deficits. - Labs CBC & Chem 7: 07/06/19 04:45 07/07/19 05:37 Labs: Abnormal Lab Results - Last 24 Hours (Table) 07/07/19 07/07/19 Range/Units 05:37 05:41 PT 12.6 H (9.0-12.0) sec INR 1.2 H (<1.2) Potassium 3.4 L (3.5-5.1) mmol/L Carbon Dioxide 32 H (22-30) mmol/L Total Bilirubin 2.6 H (0.2-1.3) mg/dL Unconjugated Bilirubin 1.3 H (0.0-1.1) mg/dL Delta Bilirubin 1.3 H (0.0-0.2) mg/dL Alkaline Phosphatase 233 H (38-126) U/L Assessment and Plan (1) Elevated liver enzymes Narrative/Plan: 58-year-old male presenting to the hospital with complaints of shortness of breath and extremity swelling currently being treated for suspected congestive heart failure and atrial fibrillation. Patient was noted to have a predominantly cholestatic pattern of elevated liver enzymes with total bilirubin 3.5, alkaline phosphatase 213, AST 46 and ALTs 36. Denies any prior history of liver disease, intrinsic liver disease, viral hepatitis, blood transfusion, IV drug use, prior GI bleeding or encephalopathy. He does have a significant history of alcohol abuse with 6-12. His daily for 10 years for which she has been abstinent from alcohol over the past 4 months. Likely etiology of patient's elevated liver enzymes is from underlying fibrosis from alcoholic liver disease. Current Visit: Yes Status: Acute Code(s): R74.8 - ABNORMAL LEVELS OF OTHER SERUM ENZYMES SNOMED Code(s): 667285320 Plan: Supportive care Okay for diet Continue to monitor CBC, CMP Ultrasound abdomen significant for hepatocellular disease and hepatomegaly EST and viral hepatitis panel NEGATIVE Alcohol abstinence Thank you for allowing us to participate in the care of this patient, the GI service will stand by, please call us back with any questions or concerns
--- NOTE | 2019-07-07 23:16 | PN ---
PROGRESS NOTE CHIEF COMPLAINT: Congestive heart failure. HISTORY OF PRESENT ILLNESS: This gentleman is doing better. His breathing is improving. The ankle edema is improved as well. PHYSICAL EXAMINATION: He still has rales, rhonchi, wheezing in both lung becerra, but breath sounds have improved. Cardiac exam demonstrates a somewhat irregularly irregular sounding rhythm. Abdomen is soft and extremities are still edematous. IMPRESSION: 1. Congestive heart failure. 2. Alcohol abuse. 3. Rule out alcoholic cardiomyopathy. PLAN: 1. Echocardiogram. 2. Continue diuresis. MMODL / IJN: [id number] /
[2019-07-08] MEDS: FUROSEMIDE 10 MG/ML 10 ML VIAL IV SCH (08:19)
[2019-07-08] MEDS: ASPIRIN 81 MG PO SCH (08:20)
[2019-07-08] MEDS: METOPROLOL SUCCINATE (ER) 50 MG TAB.ER.24H PO SCH (08:20)
[2019-07-08] MEDS: SPIRONOLACTONE-HCTZ 25-25MG 1 EACH TAB PO SCH ×2 (08:20→20:59)
[2019-07-08] MEDS: LISINOPRIL 5 MG TAB PO SCH (08:20)
[2019-07-08 11:49] LABS: Albumin 4.3 g/dL (3.5-5.0); Calcium 10.1 mg/dL (8.4-10.2); Potassium 4.1 mmol/L (3.5-5.1); Total Bilirubin 2.8 mg/dL (0.2-1.3); Total Protein 8.2 g/dL (6.3-8.2)
[2019-07-08 11:59] LABS: Basophils # (A) 0.3 k/uL (0-0.2); Basophils % (A) 3 %; Eosinophils # (A) 0.1 k/uL (0-0.7); Eosinophils % (A) 1 %; Lymphocytes # (A) 1.7 k/uL (1.0-4.8); Lymphocytes % (A) 17 %; MCH 33.8 pg (25.0-35.0); MCHC 33.3 g/dL (31.0-37.0); MCV 101.7 fL (80.0-100.0); Macrocytosis Slight; Mean Platelet Volume 7.9; Monocytes # (A) 0.7 k/uL (0-1.0); Monocytes % (A) 7 %; Neutrophils # (A) 7.3 k/uL (1.3-7.7); Neutrophils % (A) 72 %; Platelet Count 172 k/uL (150-450); RBC 4.72 m/uL (4.30-5.90); RDW 13.5 % (11.5-15.5); WBC 10.2 k/uL (3.8-10.6)
[2019-07-08] MEDS ORDERED: ALPRAZolam 0.5 MG TAB PO PRN (13:32)
[2019-07-08] MEDS ORDERED: NITROGLYCERIN SL TABS 0.4 MG TAB SUBLINGUAL PRN (13:32)
[2019-07-08] MEDS ORDERED: ALPRAZolam 0.25 MG TAB PO PRN (13:32)
--- NOTE | 2019-07-08 14:02 | P.PN ---
Subjective Progress Note Date: 07/08/19 This is a 58-year-old gentleman with history of alcohol abuse, stopped drinking approximately 6 months ago, came to the hospital with sustained palpitations and associated shortness of breath. He had also noticed a significant increase in his bilateral lower extremity edema. Patient was seen in consultation by Dr. Celaya yesterday, he was found to be in atrial flutter with a variable heart rate. A computed tomography scan of the chest was negative for pulmonary embolism but it did reveal evidence of bilateral pleural effusions. Patient was seen and examined this morning he sitting up in chair, he states he's been urinating a significant amount through the night last night. He continues to be in atrial flutter this morning and is on a Cardizem drip at 10 mg per hour. He had been on amiodarone yesterday, this was placed on hold because of elevated bilirubin. He was initiated on anticoagulation yesterday in the form of Xarelto. His blood pressure is 124/80, heart rate in the 120s today. Sodium 139, potassium 3.4, BUN 15, creatinine 1.0. Unconjugated bilirubin 1.3, delta bilirubin 1.3. Troponin 0.012, 0.012, 0.014. CAT scan of the abdomen was performed which revealed a small amount of abdominal and pelvic ascites of uncertain etiology. Mild diffuse fatty infiltration of the liver. Moderate amount of soft tissue anasarca. Ultrasound of the abdomen was performed which revealed hepatocellular disease hepatic steatosis, hepatomegaly and ascites. Echocardiogram with Doppler study was performed which revealed a severely impaired left ventricular systolic function, 20-25%. Mild to moderate mitral regurg mild to moderate tricuspid regurg. His weight today is down significantly from admission. He is diuresing very well. Continues to be on IV Lasix 60 mg every 12 hourly. 07/08/2019 Patient was seen and examined this morning, diuresed well again through the night last night his weight is down 4 kg today. His biggest issue is that he is extremely itchy, from this full-body rash that he is developed. Although he is on steroids for it, he continues to be extremely itchy. Blood pressure today 125/60 with a heart rate of 90, 97% on room air. Subsequently patient converted to normal sinus rhythm, heart rate 70 this afternoon. Blood cell count 10.2, hemoglobin 16, platelet count 172. Sodium 136, potassium or 0.1, BUN 20, creatinine 1.1. We will hold the patient's xarelto today, we will also discontinue the IV Lasix and change him over to oral diuretics today. Patient will undergo a cardiac catheterization tomorrow by Dr. Wakefield. Objective - Vital Signs Vital signs: Vital Signs Temp 97.6 F 07/08/19 12:00 Pulse 79 07/08/19 12:00 Resp 16 07/08/19 12:00 BP 125/69 07/08/19 12:00 Pulse Ox 97 07/08/19 12:00 Intake & Output 07/07/19 07/08/19 07/08/19 18:59 06:59 18:59 Intake Total 1380 40 240 Output Total 1500 500 300 Balance -120 -460 -60 Weight 127.8 kg 123.3 kg Intake: IV 400 40 .9 NS @ 50ml/hr 400 40 Oral 980 240 Output: Urine 1500 500 300 Other: Voiding Method Toilet # Voids 2 1 # Bowel Movements 1 - Exam PHYSICAL EXAMINATION: GENERAL: 58-year-old gentleman in no acute distress at the time of my examination HEENT: Head is atraumatic, normocephalic. Pupils equal, round. Sclera anicteric. Conjunctiva are clear. Mucous membranes of the mouth are moist. Neck is supple. There is elevated jugular venous pressure. No bruit is heard. HEART EXAMINATION: Heart S1 and S2 irregularly irregular a systolic murmur is heard CHEST EXAMINATION: Lungs are clear with fine expiratory wheezes today. ABDOMEN: Soft, obese, nontender. Bowel sounds are heard. No organomegaly noted. EXTREMITIES: 2+ peripheral pulses with 1+ evidence of peripheral edema and no calf tenderness noted. Areas evidence of a full-body rash. NEUROLOGIC patient is awake, alert and oriented 3 . . - Labs CBC & Chem 7: 07/08/19 11:04 07/08/19 11:04 Labs: Abnormal Lab Results - Last 24 Hours (Table) 07/08/19 07/08/19 Range/Units 11: 11:04 MCV 101.7 H (80.0-100.0) fL Basophils # 0.3 H (0-0.2) k/uL Sodium 136 L (137-145) mmol/L Chloride 88 L (98-107) mmol/L Carbon Dioxide 39 H (22-30) mmol/L Total Bilirubin 2.8 H (0.2-1.3) mg/dL Alkaline Phosphatase 236 H (38-126) U/L Assessment and Plan Plan: Assessment and plan #1 systolic congestive heart failure acute on chronic #2 typical atrial flutter #3 history of alcohol abuse Plan IV Lasix will be discontinued and patient will be changed over to oral diuretics. Xarelto will also be held today and patient will be scheduled to undergo cardiac catheterization tomorrow, the risks and the benefits were explained to the patient in detail and he is willing to proceed. Once the IV amiodarone has infused patient will be started on oral amiodarone. DNP note has been reviewed, I agree with a documented findings and plan of care. Patient was seen and examined.
--- NOTE | 2019-07-08 14:04 | P.PN ---
Progress Note - Text Progress Note Date: 07/08/19 This is an addendum to the cardiology progress note dictated today. Patient does not have a full-body rash, this was an incorrect dictation on this patient. His skin is clean and dry, no evidence of any rash. DNP note has been reviewed, I agree with a documented findings and plan of care. Patient was seen and examined.
[2019-07-08] MEDS: FUROSEMIDE 20 MG TAB PO SCH (14:40)
[2019-07-08] MEDS: SODIUM CHLORIDE 0.9% 1,000 ML IV SCH (14:46)
[2019-07-08] MEDS: AMIODARONE 300 MG in DEXTROSE 5% IN WATER 250 ML IV SCH ×2 (14:47)
[2019-07-08] MEDS: AMIODARONE 200 MG TAB PO SCH ×2 (15:35→20:58)
--- NOTE | 2019-07-08 19:00 | XR ---
EXAMINATION TYPE: XR chest 2V DATE OF EXAM: 07/08/2019 COMPARISON: 07/06/2019 INDICATION: CHF TECHNIQUE: Frontal and lateral views of the chest are obtained. FINDINGS: The heart size is borderline in size. The pulmonary vasculature is normal. No suspicious infiltrates are evident.. IMPRESSION: 1. Borderline cardiomegaly
--- NOTE | 2019-07-08 20:31 | PN ---
PROGRESS NOTE CHIEF COMPLAINT: Congestive heart failure. HISTORY OF PRESENT ILLNESS: This gentleman is improving a little bit more each day. He is still a little bit dyspneic, but he is definitely better. We await the results of his echocardiogram. Liver function studies are also elevated. PHYSICAL EXAMINATION: His chest is improving. He has a few rales, rhonchi and wheezing. Cardiac exam is unchanged. The abdomen is soft and nontender. Edema is less. IMPRESSION: 1. Acute congestive heart failure. 2. Alcoholic cardiomyopathy. 3. Alcoholism. PLAN: Continue with diuresis and continue to watch his liver function studies, but he can probably go home in the next day or two. MMODL / IJN: [id number] /
[2019-07-09] MEDS ORDERED: ATORVASTATIN 80 MG TAB PO ONE (06:00)
[2019-07-09] MEDS ORDERED: SODIUM CHLORIDE 0.9% 1,000 ML in EMPTY BAG 1 BAG IV ONE (06:00)
[2019-07-09] MEDS ORDERED: ASPIRIN 325 MG TAB PO ONE (06:00)
[2019-07-09] MEDS: LISINOPRIL 5 MG TAB PO SCH (09:26)
[2019-07-09] MEDS: METOPROLOL SUCCINATE (ER) 50 MG TAB.ER.24H PO SCH (09:26)
[2019-07-09] MEDS: ASPIRIN 81 MG PO SCH (09:26)
[2019-07-09] MEDS: SPIRONOLACTONE-HCTZ 25-25MG 1 EACH TAB PO SCH ×2 (09:26→21:00)
[2019-07-09] MEDS: AMIODARONE 200 MG TAB PO SCH ×2 (09:27→21:00)
[2019-07-09] MEDS: FUROSEMIDE 20 MG TAB PO SCH ×2 (09:27→16:47)
[2019-07-09] MEDS ORDERED: LIDOCAINE 1% INJ 10MG/ML (20 ML MDV) ONE (09:43)
[2019-07-09] MEDS ORDERED: SODIUM CHLORIDE 0.9% 1,000 ML IV ONE (09:49)
[2019-07-09] MEDS ORDERED: fentaNYL (PF) 50 MCG/ML 2 ML AMP ONE (09:59)
[2019-07-09] MEDS ORDERED: MIDAZOLAM 2 MG/2 ML VIAL IV ONE (10:03)
[2019-07-09] MEDS ORDERED: LIDOCAINE 1% INJ 10MG/ML (20 ML MDV) SQ ONE (10:07)
[2019-07-09] MEDS ORDERED: IOPAMIDOL-370 125ML BTL INJ ONE (10:16)
[2019-07-09] MEDS ORDERED: RX INFO: IV CONTRAST WAS GIVEN 1 EACH MISC MISCELLANE PRN (10:33)
[2019-07-09] MEDS: SODIUM CHLORIDE 0.9% 1,000 ML IV SCH ×3 (10:45→23:24)
--- NOTE | 2019-07-09 10:58 | CC ---
CARDIAC CATHETERIZATION REPORT INDICATION: Class 4 congestive heart failure, systolic congestive heart failure. PROCEDURE NOTE: After obtaining informed consent, left heart catheterization and coronary angiogram were performed via the right femoral artery using standard [place] catheters the patient tolerated the procedure well without any obvious immediate complications. A femoral angiogram was performed and Angio-Seal was deployed for hemostasis. Patient received moderate conscious sedation. Total sedation time was 21 minutes. FINDINGS: 1. HEMODYNAMICS: Left ventricular end-diastolic pressure is 16-18 mm there is no significant gradient across the aortic valve. 2. LEFT VENTRICULOGRAM: Left ventriculogram was not performed. 3. ANGIOGRAPHIC DATA. LEFT MAIN CORONARY ARTERY:: :Left main coronary artery is a normal-sized vessel and is free of stenosis. Divides into left anterior descending coronary artery and circumflex artery. LAD and its branches, circumflex coronary artery and its branches are free of significant stenosis. Right coronary artery is a large dominant vessel and is free of significant disease. CONCLUSION: 1. Normal coronary arteries. 2. Elevated left ventricular end-diastolic pressure. 3. Severe LV dysfunction with noninvasive testing. PLAN: The patient's management is going to be in the form of optimal medical therapy for heart failure and the underlying atrial fibrillation flutter. MMODL / IJN: [id number] /
[2019-07-09 13:01] LABS: Glucose,Whole Blood 234 mg/dL (75-99)
[2019-07-09] MEDS: DIGOXIN 250 MCG/ML 2 ML AMP IVP SCH ×2 (16:47→23:23)
[2019-07-09 17:01] LABS: Glucose,Whole Blood 122 mg/dL (75-99)
[2019-07-09] MEDS ORDERED: RIVAROXABAN 20 MG TAB PO SCH (17:30)
--- NOTE | 2019-07-09 19:32 | PN ---
PROGRESS NOTE CHIEF COMPLAINT: Congestive heart failure and cardiomyopathy. HISTORY OF PRESENT ILLNESS: This gentleman continues to do very well. Cardiac cath was done and apparently does not demonstrate any coronary artery lesions. Still has tachycardia. EKG will be repeated to confirm his rhythm. PHYSICAL EXAMINATION: He still has scattered rales and rhonchi bilaterally but they are improving. Cardiac exam sounds like he is in sinus. Abdomen is soft and nontender. IMPRESSION: 1. Congestive heart failure. 2. Alcoholic cardiomyopathy. PLAN: Repeat EKG and probably home tomorrow. MMODL / IJN: [id number] /
[2019-07-10 08:01] VITALS: RESP 18
[2019-07-10] MEDS: AMIODARONE 200 MG TAB PO SCH (08:57)
[2019-07-10] MEDS: ASPIRIN 81 MG PO SCH (08:57)
[2019-07-10] MEDS: FUROSEMIDE 20 MG TAB PO SCH (08:58)
[2019-07-10] MEDS: LISINOPRIL 5 MG TAB PO SCH (08:58)
[2019-07-10] MEDS: METOPROLOL SUCCINATE (ER) 50 MG TAB.ER.24H PO SCH (08:59)
[2019-07-10] MEDS: SPIRONOLACTONE-HCTZ 25-25MG 1 EACH TAB PO SCH (09:00)
[2019-07-10] MEDS ORDERED: DIGOXIN 125 MCG TAB PO SCH (09:00)
[2019-07-10] MEDS ORDERED: DIGOXIN 125 MCG TAB PO ONE (09:15)
[2019-07-10 10:09] LABS: Calcium 9.9 mg/dL (8.4-10.2); Potassium 3.7 mmol/L (3.5-5.1)
--- NOTE | 2019-07-10 10:12 | PN ---
PROGRESS NOTE Ton is a 58-year-old gentleman who is admitted to hospital with new onset congestive heart failure and atrial fibrillation. He remains in atrial fibrillation with reasonably well-controlled heart rate. He underwent cardiac catheterization yesterday that revealed normal coronary arteries. He lost nearly 40 pounds since his admission, leg edema had improved. There is no history of shortness of breath. He is currently on amiodarone 200 b.i.d., aspirin, Lanoxin 0.125, which I am increasing to 0.25, Lasix 60 b.i.d., Zestril 5 q. daily, Toprol-XL 50 q. daily, Xarelto 20 q. daily, and Aldactone 25 mg daily. On exam, comfortable at rest. Heart rate is 104 beats per minute. Blood pressure is 118/86, respiratory rate is 18, O2 saturation is 92% on room air. There is no jugular venous distention. Chest exam reveals good air entry bilaterally. I do not hear any crackles or rhonchi. Heart exam reveals first and second heart sounds and a systolic murmur at the left lower sternal border. Abdomen is soft. Exam of the extremities reveals 1+ edema, but this has improved significantly compared to admission. I do not have any labs on him. ASSESSMENT: 1. Persistent atrial fibrillation with better controlled ventricular rate. 2. Acute onset systolic heart failure. 3. Dilated cardiomyopathy. PLAN: I will increase the dose of digoxin. Check labs on him. We should be able to discharge him home and arrange outpatient followup through my office. MMTIGIST / CHRISN: [id number] /
[2019-07-10 12:11] VITALS: BP 110/82; PULSE 100; TEMP 98.6
--- NOTE | 2019-07-10 23:16 | DS ---
DISCHARGE SUMMARY CHIEF COMPLAINT: Shortness of breath. HISTORY OF PRESENT ILLNESS AND PHYSICAL EXAM: Details of this man's history and physical can be found in the initial workup. LABORATORY STUDIES: While he was in the hospital, he had laboratory studies, details of which can be found laboratory section of his chart. COURSE IN HOSPITAL: After admission, he was placed on bedrest, started on intravenous fluids and he was diuresed. It was determined that his congestive heart failure was related to alcoholic cardiomyopathy. As he improved, his activity was increased and he was doing well enough it was felt he could go home on the . He will go home on light activity and a low-sodium diet and admonished not to consume any alcohol to which he agrees. FINAL DIAGNOSES: 1. Acute congestive heart failure. 2. Atrial fibrillation with rapid ventricular response. 3. Alcoholic cardiomyopathy. 4. Chronic alcoholism. OPERATIONS: None. CONSULTATION: Cardiology. He is improved. MMALLANL / IJN: [id number] /
[2019-07-11] MEDS ORDERED: SPIRONOLACTONE 25 MG TAB PO SCH (09:00)
[2019-07-11] MEDS ORDERED: DIGOXIN 250 MCG TAB PO SCH (09:00)
== END 2019-07-10 15:36 | disposition home or self-care (01) | DRG 287 ==
LOC: EC 15:40 → 3SCARD 18:45 → OBSVTOIN 07-06 13:15
PROVIDERS: ADMIT Family Medicine; ATTEND Family Medicine
PROC: B2111ZZ Fluoroscopy of Multiple Coronary Arteries using Low Osmolar Contrast (ICD-10-PCS; 2019-07-09)
PROC: 4A023N7 Measurement of Cardiac Sampling and Pressure, Left Heart, Percutaneous Approach (ICD-10-PCS; principal; 2019-07-09 12:00)
DX: I11.0 Hypertensive heart disease with heart failure (principal); I48.19 Other persistent atrial fibrillation; I48.4 Atypical atrial flutter; R18.8 Other ascites; I42.6 Alcoholic cardiomyopathy; I42.0 Dilated cardiomyopathy; F10.21 Alcohol dependence, in remission; Z87.891 Personal history of nicotine dependence; I08.1 Rheumatic disorders of both mitral and tricuspid valves; I50.23 Acute on chronic systolic (congestive) heart failure; K70.9 Alcoholic liver disease, unspecified; K76.0 Fatty (change of) liver, not elsewhere classified; Z79.82 Long term (current) use of aspirin; Z82.49 Family history of ischemic heart disease and other diseases of the circulatory system
CPT/HCPCS: 36415; 71046; 71275; 74178; 76700; 80048; 80053; 80074; 80076; 82105; 83880; 84484; 85025; 85379; 85610; 85730; 93005; 93306; 93458; 96374; 96375; 99285